=== PATIENT | female | born 1945 | race Caucasian/White ===

== ENCOUNTER 2019-05-21 19:37 | Inpatient (IN) ==
[2019-05-21] MEDS ORDERED: Lidocaine -MPF 2% 2 ML VIAL ONE (20:02)
[2019-05-21] MEDS ORDERED: Propofol 500 MG/50 ML INFUS..BTL ONE (20:02)
[2019-05-21] MEDS ORDERED: *HR* Rocuronium Bromide 50 MG/5 ML VIAL ONE (20:02)
[2019-05-21] MEDS ORDERED: Lidocaine HCL 4 ML Topical Solution (Laryng-O-Jet Kit Sterile Pak) TP ONE (20:02)
[2019-05-21] MEDS ORDERED: *HR* Propofol 200 MG/20 ML VIAL IVP ONE (20:04)
[2019-05-21] MEDS ORDERED: *HR* FentaNYL (PF) 100 MCG/2 ML VIAL ONE (20:04)
[2019-05-21] MEDS ORDERED: Acetaminophen IV 0 MG/0 ML INFUS..BTL ONE (20:48)
[2019-05-21] MEDS ORDERED: Bupivacaine/EPI 1:200k 0.5%PF 30 ML VIAL ONE (20:48)
[2019-05-21 21:58] LABS: Basophils % 0.1 %; Eosinophils # 0.1 K/mcL (0.0-0.6); Eosinophils % 1.6 %; Hematocrit 18.5 % (35.3-44.9); Hemoglobin 6.1 g/dL (11.5-15.4); Immature Granulocytes % 0.3 % (0-4); Lymphocytes # 1.5 K/mcL (0.6-4.6); Mean Corpuscular Hemoglobin 28.2 pg (28.0-33.3); Mean Corpuscular Volume 85.6 fL (83.0-100.0); Mean Platelet Volume 10.9 fL (9.4-12.4); Monocytes # 0.5 K/mcL (0.0-1.3); Monocytes % 7.2 %; Neutrophils # 4.9 K/mcL (1.6-8.9); Platelet Count 236 K/mcL (140-400); Red Blood Count 2.16 M/mcL (3.82-4.97); Segmented Neutrophils % 69.8 %; White Blood Count 7.1 K/mcL (4.3-11.1)
[2019-05-21] MEDS ORDERED: 0.9 % Sodium Chloride 500 ML ONE (22:07)
[2019-05-21 22:18] LABS: INR 1.3; Prothrombin Time 14.4 Seconds (9.4-12.1)
[2019-05-22] MEDS ORDERED: Ondansetron 4 MG/2 ML VIAL IVP PRN (00:24)
[2019-05-22] MEDS: 0.9 % Sodium Chloride 1,000 ML IVC SCH ×3 (00:53→17:21)
[2019-05-22] MEDS: cefOXitin 1,000 MG in 0.9 % Sodium Chloride Mini Bag 100 ML IVPB SCH ×4 (00:55→23:31)
[2019-05-22] MEDS: Pantoprazole 40 MG in 0.9 % Sodium Chloride Mini Bag 100 ML IVC SCH ×5 (00:55→22:16)
[2019-05-22] MEDS ORDERED: 0.9 % Sodium Chloride 250 ML ONE ×2 (01:34→07:31)
[2019-05-22 14:09] LABS: Basophils % 0.2 %; Eosinophils # 0.1 K/mcL (0.0-0.6); Eosinophils % 1.1 %; Hematocrit 28.1 % (35.3-44.9); Immature Granulocytes % 0.2 % (0-4); Lymphocytes # 0.9 K/mcL (0.6-4.6); Mean Corpuscular HGB Conc 33.8 g/dL (31.6-35.5); Mean Corpuscular Volume 85.7 fL (83.0-100.0); Mean Platelet Volume 10.4 fL (9.4-12.4); Monocytes # 0.5 K/mcL (0.0-1.3); Monocytes % 5.7 %; Neutrophils # 6.8 K/mcL (1.6-8.9); Platelet Count 224 K/mcL (140-400); Red Blood Count 3.28 M/mcL (3.82-4.97); Red Cell Distribution Width 14.4 % (11.5-14.5); Segmented Neutrophils % 81.8 %; White Blood Count 8.4 K/mcL (4.3-11.1)
[2019-05-22 14:15] LABS: Hemoglobin 9.5 g/dL (11.5-15.4)
[2019-05-22 14:31] LABS: BUN/Creatinine Ratio 24 (6-26); Blood Urea Nitrogen 15 mg/dL (8-23); Calcium 7.8 mg/dL (8.6-10.3); Carbon Dioxide 21 mEq/L (23-29); Chloride 101 mEq/L (98-107); Glucose 135 mg/dL (70-105); Osmolality,Calculated 271 (280-300); Potassium 3.7 mEq/L (3.5-5.1); Sodium 129 mEq/L (136-145); eGFR For African Americans > 60 (> 60); eGFR For Non-African Americans > 60 (> 60)
[2019-05-23] MEDS: Pantoprazole 40 MG in 0.9 % Sodium Chloride Mini Bag 100 ML IVC SCH (03:07)
[2019-05-23] MEDS: cefOXitin 1,000 MG in 0.9 % Sodium Chloride Mini Bag 100 ML IVPB SCH (07:55)
[2019-05-23] MEDS: 0.9 % Sodium Chloride 1,000 ML IVC SCH (07:58)
[2019-05-23 11:44] VITALS: BP 152/75
[2019-05-23] MEDS ORDERED: FLU Vac QV 19-20 (6Month+)/PF 0.5 ML SYRINGE IM ONE (14:11)
== END 2019-05-23 15:43 | disposition home or self-care (01) | DRG 378 ==
LOC: EMEROOARM 19:37 → 2NENU 20:42 → 2NNU 21:43
PROVIDERS: ADMIT Surgery; ATTEND Surgery